=== PATIENT | female | born 1995 | race Hispanic/Latino ===

== ENCOUNTER 2023-12-11 21:22 | Observation (INO) | payer MEDICAID ==
[~2023-12-11] VITALS: Ht 152.4 cm; Wt 86.2 kg
[2023-12-11 21:35] VITALS: BP 176/94; PULSE 78; RESP 18
[2023-12-11 22:07] LABS: ADD UA MICROSCOPIC YES; APPEARANCE,URINE CLEAR (CLEAR); BILIRUBIN,URINE NEGATIVE (NEGATIVE); COLOR,URINE COLORLESS (YELLOW); GLUCOSE, URINE (UA) NEGATIVE (NEGATIVE); KETONES,URINE NEGATIVE (NEGATIVE); LEUKOCYTE ESTERASE ,URINE 250 Leu/uL (NEGATIVE); NITRATE,URINE NEGATIVE (NEGATIVE); OCCULT BLOOD,URINE NEGATIVE (NEGATIVE); PH,URINE 6.5 (5.0-8.0); PROTEIN,URINE NEGATIVE (NEGATIVE); UROBILINOGEN,URINE 0.2 mg/dL (0.2-1.0)
[2023-12-11 22:27] LABS: BACTERIA,URINE FEW /HPF (None Seen); MUCUS,URINE RARE LPF (None Seen); RBC,URINE 0-1 /HPF (0-1)
[2023-12-11] MEDS: TERBUTALINE SULFATE VIAL 1MG/ML SQ ONE (22:34)
[2023-12-11] MEDS: TERBUTALINE SULFATE VIAL 1MG/ML SQ SCH (22:35)
[2023-12-11] MEDS: LACTATED RINGERS 1000ML IV SCH (22:37)
== END 2023-12-11 23:18 | disposition home or self-care (01) ==
LOC: EDH 21:22 → LDH 21:45
PROVIDERS: ADMIT Obstetrics & Gynecology; ATTEND Obstetrics & Gynecology
DX: O26.893 Other specified pregnancy related conditions, third trimester (principal); N89.8 Other specified noninflammatory disorders of vagina; O99.343 Other mental disorders complicating pregnancy, third trimester; F32.A Depression, unspecified; R10.9 Unspecified abdominal pain; Z3A.29 29 weeks gestation of pregnancy
CPT/HCPCS: 96372; 96360; 87077; 87088; 87186; 81001; G0378 ×2; G0379; J3105; J7120